=== PATIENT | female | born 1950 | race African-American/Black ===

== ENCOUNTER 2016-04-15 15:39 | Emergency (ER) | payer OTHER ==
[~2016-04-15] VITALS: Ht 160 cm; Wt 76.6 kg
[~2016-04-15 15:39] MED LIST: TYLE650T4
[2016-04-15 15:45] VITALS: BP 170/100; PULSE 112; RESP 16; TEMP 98.5; O2SAT 97
[2016-04-15 16:39] LABS: BLOOD, URINE NEG (NEG); GLUCOSE,URINE NEG (NEG); KETONE, URINE NEG (NEG); NITRITE,URINE NEG (NEG); PH, URINE 7.5 (5.0-8.5)
[2016-04-15 16:57] LABS: METHOD OF COLLECTION CLEAN CATCH; URINE COLOR YELLOW (YELLW/STRAW)
[2016-04-15 16:58] LABS: COMMENT (UR) CULT NOT INDICATED; CULTURE IF INDICATED CULT NOT INDICATED; SQUAMOUS EPITHELIAL CELL URINE 0-2 /hpf (0-5)
[2016-04-15] MEDS ORDERED: SODIUM CHLOR 0.9% 1000 ML INJ 1,000 ML IV ONE (17:06)
--- NOTE | 2016-04-15 17:14 | PD ---
HPI Chief Complaint: Abdominal Pain Time Seen by Provider: 17:03 Travel History International Travel<30 days: No Contact w/Intl Traveler<30days: No History of Present Illness HPI 65-year-old female presents with left upper back pain and nonbloody vomiting. This is been going on today. She denies any diarrhea or other concurrent complaints. Quality pain is sharp. Severity is moderate. Pain is worse with movement. She denies recurrent history of this. Quality is nonbloody. Severity is multiple episodes. PFSH Past Medical History Medical History: Denies Significant Hx Reproductive: Yes (PERIMENOPAUSAL) Past Surgical History Other Surgery: Yes () Social History Alcohol Use: No Tobacco Use: No Allergies-Medications (Allergen,Severity, Reaction): Coded Allergies: No Known Allergies (Verified , 04/15/16) Reported Meds & Prescriptions Reported Meds & Active Scripts Active No Active Prescriptions or Reported Medications Review of Systems Except as stated in HPI: all other systems reviewed are Neg Physical Exam Narrative GENERAL: Well-nourished, well-developed patient. SKIN: Warm and dry. HEAD: Normocephalic and atraumatic. EYES: No injection or drainage. ENT: No nasal drainage noted. NECK: Supple, trachea midline. CARDIOVASCULAR: Regular rate and rhythm RESPIRATORY: no increased effort. No accessory muscle use. GASTROINTESTINAL: Abdomen soft, non-tender, nondistended. EXTREMITIES: No edema. BACK: Nontender without obvious deformity in midline, ttp left flank area. NEUROLOGICAL: Awake and alert. Motor and sensory grossly within normal limits. Normal speech. Data Data Last Documented VS Vital Signs Date Time Temp Pulse Resp B/P Pulse Ox O2 Delivery O2 Flow Rate FiO2 04/15/16 18:22 16 04/15/16 18:06 102 173/83 96 Room Air 04/15/16 15:45 98.5 Orders Urinalysis - C+S If Indicated (04/15/16 16:17) Complete Blood Count With Diff (04/15/16 17:06) Comprehensive Metabolic Panel (04/15/16 17:06) Ct Abd/Pel W/O Iv Contrast (04/15/16 17:06) Ecg Monitoring (04/15/16 17:06) Iv Access Insert/Monitor (04/15/16 17:06) Ketorolac Inj (Toradol Inj) (04/15/16 17:15) Ondansetron Inj (Zofran Inj) (04/15/16 17:15) Sodium Chloride 0.9% Flush (Ns Flush) (04/15/16 17:15) Sodium Chlor 0.9% 1000 Ml Inj (Ns 1000 M (04/15/16 17:06) Lipase (04/15/16 17:06) Morphine Inj (Morphine Inj) (04/15/16 18:00) Labs Laboratory Tests Test 04/15/16 04/15/16 16:30 17:20 Urine Collection Type CLEAN CATCH Urine Color YELLOW Urine Turbidity CLOUDY Urine pH 7.5 Urine Specific [place] 1.016 Urine Protein 30 mg/dL Urine Glucose (UA) NEG mg/dL Urine Ketones NEG mg/dL Urine Occult Blood NEG Urine Nitrite NEG Urine Bilirubin NEG Urine Leukocyte Esterase NEG Urine Squamous Epithelial 0-2 /hpf Cells Urine Amorphous Sediment MOD Microscopic Urinalysis Comment CULT NOT INDICATED White Blood Count 6.1 TH/MM3 Red Blood Count 4.84 MIL/MM3 Hemoglobin 14.1 GM/DL Hematocrit 41.9 % Mean Corpuscular Volume 86.6 FL Mean Corpuscular Hemoglobin 29.1 PG Mean Corpuscular Hemoglobin 33.6 % Concent Red Cell Distribution Width 13.8 % Platelet Count 250 TH/MM3 Mean Platelet Volume 9.6 FL Neutrophils (%) (Auto) 79.4 % Lymphocytes (%) (Auto) 15.4 % Monocytes (%) (Auto) 2.9 % Eosinophils (%) (Auto) 0.3 % Basophils (%) (Auto) 2.0 % Neutrophils # (Auto) 4.9 TH/MM3 Lymphocytes # (Auto) 0.9 TH/MM3 Monocytes # (Auto) 0.2 TH/MM3 Eosinophils # (Auto) 0.0 TH/MM3 Basophils # (Auto) 0.1 TH/MM3 CBC Comment DIFF FINAL Differential Comment Sodium Level 142 MEQ/L Potassium Level 3.7 MEQ/L Chloride Level 106 MEQ/L Carbon Dioxide Level 27.8 MEQ/L Anion Gap 8 MEQ/L Blood Urea Nitrogen 13 MG/DL Creatinine 1.00 MG/DL Estimat Glomerular Filtration 68 ML/MIN Rate Random Glucose 111 MG/DL Calcium Level 9.3 MG/DL Total Bilirubin 0.3 MG/DL Aspartate Amino Transf 19 U/L (AST/SGOT) Alanine Aminotransferase 47 U/L (ALT/SGPT) Alkaline Phosphatase 108 U/L Total Protein 8.2 GM/DL Albumin 4.2 GM/DL Lipase 116 U/L MDM Medical Decision Making Medical Screen Exam Complete: Yes Emergency Medical Condition: Yes Medical Record Reviewed: Yes (pmh confirmed) Interpretation(s) ua without signs of infection CBC & BMP Diagram 04/15/16 17:20 Differential Diagnosis Kidney stone, pancreatitis, gastroenteritis Narrative Course Will check blood work and CAT scan abdomen and dose with Toradol and Zofran and reevaluate. Physician Communication Physician Communication oncoming er doctor nicolle to follow ct and reeval Scripts No Active Prescriptions or Reported Meds Sigrid Hurtado MD Apr 15, 2016 17:14
[2016-04-15] MEDS ORDERED: ONDANSETRON HCL 4 MG/2 ML VIAL IVP ONE (17:15)
[2016-04-15] MEDS ORDERED: KETOROLAC TROMETHAMINE 30 MG/ML (IVP) VIAL IVP ONE (17:15)
[2016-04-15] MEDS ORDERED: SODIUM CHLORIDE 0.9% FLUSH 5 ML FLUSH IVF PRN (17:15)
[2016-04-15 17:27] LABS: AUTOMATED NEUTROPHIL # 4.9 TH/MM3 (1.8-7.7); BASOPHIL # 0.1 TH/MM3 (0-0.2); EOSINOPHIL % 0.3 % (0.0-4.0); HEMATOCRIT 41.9 % (35.0-46.0); HEMO FLAGS DIFF FINAL; LYMPH % 15.4 % (9.0-44.0); LYMPHOCYTE # 0.9 TH/MM3 (1.0-4.8); MEAN CELL VOLUME 86.6 FL (80.0-100.0); MEAN CORPUSCULAR HEMOGLOBIN 29.1 PG (27.0-34.0); MEAN CORPUSCULAR HGB CONC 33.6 % (32.0-36.0); MONO % 2.9 % (0.0-8.0); NEUT % 79.4 % (16.0-70.0); PLATELET COUNT 250 TH/MM3 (150-450); RED BLOOD COUNT 4.84 MIL/MM3 (4.00-5.30); RED CELL DISTRIBUTION WIDTH 13.8 % (11.6-17.2); WHITE BLOOD COUNT 6.1 TH/MM3 (4.0-11.0)
[2016-04-15 17:32] VITALS: BP 191/98; PULSE 98; RESP 18; O2SAT 97
[2016-04-15 17:36] LABS: CHLORIDE 106 MEQ/L (98-107); POTASSIUM 3.7 MEQ/L (3.5-5.1); SODIUM (NA) 142 MEQ/L (136-145)
[2016-04-15 17:40] LABS: ANION GAP 8 MEQ/L (5-15); BICARBONATE 27.8 MEQ/L (21.0-32.0); BLOOD UREA NITROGEN 13 MG/DL (7-18)
[2016-04-15 17:43] LABS: ALT (GPT) 47 U/L (10-53); AST (GOT) 19 U/L (15-37); GLOMERULAR FILTRATION RATE 68 ML/MIN (>89)
[2016-04-15 17:44] LABS: TOTAL BILIRUBIN ADULT 0.3 MG/DL (0.2-1.0)
[2016-04-15 17:46] LABS: ALKALINE PHOSPHATASE 108 U/L (45-117)
[2016-04-15] MEDS ORDERED: MORPHINE SULFATE 4 MG/ML INJ IV PUSH ONE (18:00)
[2016-04-15 18:06] VITALS: BP 173/83; PULSE 102; RESP 16; O2SAT 96
[2016-04-15 19:05] VITALS: BP 174/77; PULSE 102; RESP 18; O2SAT 95
--- NOTE | 2016-04-15 19:16 | RADHPO ---
EXAM DATE/TIME: 04/15/2016 18:07 [facility] COMPARISON: No previous studies available for comparison. INDICATIONS : Left upper back pain. ORAL CONTRAST: No oral contrast ingested. RADIATION DOSE: 15.25 CTDIvol (mGy) MEDICAL HISTORY : None SURGICAL HISTORY : section. ENCOUNTER: Initial ACUITY: 1 day PAIN SCALE: 7/10 LOCATION: Left Upper back. TECHNIQUE: Volumetric scanning of the abdomen and pelvis was performed. Using automated exposure control and ad justment of the mA and/or kV according to patient size, radiation dose was kept as low as reasonably achievable to obtain optimal diagnostic quality images. FINDINGS: LOWER LUNGS: The visualized lower lungs are clear. LIVER: Homogeneous density without lesion. There is no dilation of the biliary tree. No calcified gallston es. SPLEEN: Normal size without lesion. PANCREAS: Within normal limits. KIDNEYS: Normal in size and shape. There is no mass, stone, or hydronephrosis. ADRENAL GLANDS: Within normal limits. VASCULAR: There is no aortic aneurysm. BOWEL/MESENTERY: Moderate diverticulosis seen of the sigmoid and descending portions of the colon. No inflammatory asad nges. Appendix well visualized, normal. ABDOMINAL WALL: Within normal limits. RETROPERITONEUM: There is no lymphadenopathy. BLADDER: No wall thickening or mass. REPRODUCTIVE: Within normal limits. INGUINAL: There is no lymphadenopathy or hernia. MUSCULOSKELETAL: No acute bony abnormality demonstrated. Chronic thoracolumbar spine degenerative changes are noted, e specially in the mid and lower lumbar spine.. CONCLUSION: 1. No acute abnormality demonstrated. Specifically, no renal or ureteral calculus or evidence of obst ructive uropathy. 2. Diverticulosis of the left side of the colon without diverticulitis. 3. Degenerative changes of the spine. Leo Malone MD on April 15, 2016 at 19:11 Board Certified Radiologist. This report was verified electronically.
--- NOTE | 2016-04-15 19:32 | PD ---
Physical Exam Time Seen by Provider: 19:[address] Gonzalez left this patient with me to check the CT scan and make a disposition, likely discharge. Data Data Last Documented VS Vital Signs Date Time Temp Pulse Resp B/P Pulse Ox O2 Delivery O2 Flow Rate FiO2 04/15/16 21:08 97 18 165/78 96 Room Air 04/15/16 15:45 98.5 Orders Urinalysis - C+S If Indicated (04/15/16 16:17) Complete Blood Count With Diff (04/15/16 17:06) Comprehensive Metabolic Panel (04/15/16 17:06) Ct Abd/Pel W/O Iv Contrast (04/15/16 17:06) Ecg Monitoring (04/15/16 17:06) Iv Access Insert/Monitor (04/15/16 17:06) Ketorolac Inj (Toradol Inj) (04/15/16 17:15) Ondansetron Inj (Zofran Inj) (04/15/16 17:15) Sodium Chloride 0.9% Flush (Ns Flush) (04/15/16 17:15) Sodium Chlor 0.9% 1000 Ml Inj (Ns 1000 M (04/15/16 17:06) Lipase (04/15/16 17:06) Morphine Inj (Morphine Inj) (04/15/16 18:00) Hydromorphone Pf Inj (Dilaudid Pf Inj) (04/15/16 19:45) Ondansetron Inj (Zofran Inj) (04/15/16 19:45) Pantoprazole Inj (Protonix Inj) (04/15/16 20:00) Famotidine Inj (Pepcid Inj) (04/15/16 20:00) Sodium Chlor 0.9% 1000 Ml Inj (Ns 1000 M (04/15/16 20:00) Labs Laboratory Tests Test 04/15/16 04/15/16 16:30 17:20 Urine Collection Type CLEAN CATCH Urine Color YELLOW Urine Turbidity CLOUDY Urine pH 7.5 Urine Specific [place] 1.016 Urine Protein 30 mg/dL Urine Glucose (UA) NEG mg/dL Urine Ketones NEG mg/dL Urine Occult Blood NEG Urine Nitrite NEG Urine Bilirubin NEG Urine Leukocyte Esterase NEG Urine Squamous Epithelial 0-2 /hpf Cells Urine Amorphous Sediment MOD Microscopic Urinalysis Comment CULT NOT INDICATED White Blood Count 6.1 TH/MM3 Red Blood Count 4.84 MIL/MM3 Hemoglobin 14.1 GM/DL Hematocrit 41.9 % Mean Corpuscular Volume 86.6 FL Mean Corpuscular Hemoglobin 29.1 PG Mean Corpuscular Hemoglobin 33.6 % Concent Red Cell Distribution Width 13.8 % Platelet Count 250 TH/MM3 Mean Platelet Volume 9.6 FL Neutrophils (%) (Auto) 79.4 % Lymphocytes (%) (Auto) 15.4 % Monocytes (%) (Auto) 2.9 % Eosinophils (%) (Auto) 0.3 % Basophils (%) (Auto) 2.0 % Neutrophils # (Auto) 4.9 TH/MM3 Lymphocytes # (Auto) 0.9 TH/MM3 Monocytes # (Auto) 0.2 TH/MM3 Eosinophils # (Auto) 0.0 TH/MM3 Basophils # (Auto) 0.1 TH/MM3 CBC Comment DIFF FINAL Differential Comment Sodium Level 142 MEQ/L Potassium Level 3.7 MEQ/L Chloride Level 106 MEQ/L Carbon Dioxide Level 27.8 MEQ/L Anion Gap 8 MEQ/L Blood Urea Nitrogen 13 MG/DL Creatinine 1.00 MG/DL Estimat Glomerular Filtration 68 ML/MIN Rate Random Glucose 111 MG/DL Calcium Level 9.3 MG/DL Total Bilirubin 0.3 MG/DL Aspartate Amino Transf 19 U/L (AST/SGOT) Alanine Aminotransferase 47 U/L (ALT/SGPT) Alkaline Phosphatase 108 U/L Total Protein 8.2 GM/DL Albumin 4.2 GM/DL Lipase 116 U/L [facility] Medical Record Reviewed: Yes Supervised Visit with YOVANY: Yes Interpretation(s) The CT scan of the abdomen pelvis without IV contrast shows no acute abnormality , diverticulosis without diverticulitis and degenerative changes of the spine. The urine is normal and culture is not indicated. The CBC is normal. The complete metabolic profile is normal. The lipase is normal. Differential Diagnosis Urinary stone, pancreatitis, ulcer pain, gastritis, gastroenteritis, urinary tract infection Narrative Course The patient likely has a gastritis. It is now 7:31 PM and the patient feels better without nausea. She is still thirsty. She still has left flank pain. Additional Instruction: Take the nausea pill 3 times daily to prevent nausea. Do not drink alcohol or drive on the Percocet. The Prilosec is to prevent stomach acid formation and this is only one tablet daily. Follow-up next week with your primary care physician. Return to emergency department if you do not start getting better. You will get a 7 day work excuse. Med/Other Pt SpecificInfo: Prescription(s) given Scripts Ondansetron (Zofran)8 Mg Tab8 Mg PO TID #21 TAB Ref 0 Prov:Jaden Cordon MD 04/15/16 Oxycodone-Acetaminophen (Percocet)5-325 mg Tab1 Tab PO Q6H PRN (PAIN) #20 TAB Ref 0 Prov:Jaden Cordon MD 04/15/16 Omeprazole (Prilosec)20 Mg Cap20 Mg PO DAILY #30 CAP Ref 0 Prov:Jaden Cordon MD 04/15/16 Disposition: 01 DISCHARGE HOME Condition: Stable Jaden Cordon MD Apr 15, 2016 19:32
[2016-04-15] MEDS ORDERED: HYDROmorphone HCL PF 1 MG/ML VIAL IVP ONE (19:45)
[2016-04-15] MEDS ORDERED: ONDANSETRON HCL 4 MG/2 ML VIAL IV ONE (19:45)
[2016-04-15] MEDS ORDERED: FAMOTIDINE 20 MG/2 ML VIAL IV PUSH ONE (20:00)
[2016-04-15] MEDS ORDERED: SODIUM CHLOR 0.9% 1000 ML INJ 1,000 ML IV SCH (20:00)
[2016-04-15] MEDS ORDERED: PANTOPRAZOLE SODIUM 40 MG VIAL IVP ONE (20:00)
[2016-04-15 20:03] VITALS: BP 174/77; PULSE 94; RESP 18; O2SAT 94
[2016-04-15 21:08] VITALS: BP 165/78; PULSE 97; RESP 18; O2SAT 96
[2016-04-15] MEDS ORDERED: ZOFR8TAB PO (21:23)
[2016-04-15] MEDS ORDERED: PERC5TAB12 PO (21:23)
[2016-04-15] MEDS ORDERED: PRIL20CA9 PO (21:23)
== END 2016-04-15 22:02 | disposition home or self-care (01) ==
LOC: PHED 15:39
DX: R10.9 Unspecified abdominal pain (principal)
CPT/HCPCS: 74176; 80053; 81001; 83690; 85025; 96361; 96374; 96375; 96376; 99284; C9113; J1170; J1885; J2270; J2405; J7030